=== PATIENT | female | born 1945 | race Caucasian/White ===

== ENCOUNTER 2020-06-25 17:42 | Inpatient (IN) | payer MEDICARE, MEDICAID ==
[~2020-06-25] VITALS: Ht 157.5 cm; Wt 59.0 kg
[2020-06-25] MEDS ORDERED: LORazepam Inj 2mg/ml 1ml ONE (18:09)
[2020-06-25] MEDS ORDERED: LORazepam Inj 2mg/ml 1ml IM ONE (18:15)
[2020-06-25 18:53] LABS: BASOPHILS % (AUTO) 1.9 % (0.0-2.0); EOSINOPHILS % (AUTO) 3.4 % (0.0-3.0); HEMATOCRIT 38.9 % (37.0-47.0); HEMOGLOBIN 13.2 G/DL (12.0-16.0); LYMPHOCYTES % (AUTO) 36.4 % (20.0-45.0); MEAN CORPUSCULAR VOLUME 94 FL (80-99); MONOCYTES % (AUTO) 8.4 % (1.0-10.0); NEUTROPHILS % (AUTO) 49.9 % (45.0-75.0); PLATELET COUNT 227 K/UL (150-450); RED BLOOD COUNT 4.16 M/UL (4.20-5.40); RED CELL DISTRIBUTION WIDTH 12.1 % (11.6-14.8); WHITE BLOOD COUNT 11.7 K/UL (4.8-10.8)
[2020-06-25] MEDS ORDERED: Haloperidol 5mg/ml Inj IM ONE (19:00)
[2020-06-25 19:02] LABS: ANION GAP 5 mmol/L (5-15); BLOOD UREA NITROGEN 14 mg/dL (7-18); CALCIUM 9.4 MG/DL (8.5-10.1); CARBON DIOXIDE 28 MMOL/L (21-32); CHLORIDE 103 MMOL/L (98-107); POTASSIUM 4.4 MMOL/L (3.5-5.1); SODIUM 136 MMOL/L (136-145)
[2020-06-25 19:08] LABS: ALANINE AMINOTRANSFERASE 15 U/L (12-78); ALBUMIN 3.8 G/DL (3.4-5.0); ALBUMIN/GLOBULIN RATIO 1.2 (1.0-2.7); ALKALINE PHOSPHATASE 62 U/L (46-116); ASPARTATE AMINO TRANSFERASE 10 U/L (15-37); BILIRUBIN,TOTAL 0.2 MG/DL (0.2-1.0)
[2020-06-25 19:12] VITALS: BP 139/98
--- NOTE | 2020-06-25 19:44 | Emergency Room Report ---
History of Present Illness General Chief Complaint: Behavioral Complaint Source: EMS (Ana Laura Peres) Present Illness HPI 74-year-old female with no known past medical history brought in by paramedics and put on a 5150 hold by PD due to walking toward the train [place] the track. Patient is hard of hearing. Unknown underlying psychiatric disorder. At this time patient is a poor historian and will be reevaluated. (Ana Laura Peres) Allergies: Coded Allergies: No Known Allergies (Unverified , 06/25/20) COVID-19 Screening COVID-19 risk:Contact w/high r: No Has patient experienced interiano: No COVID-19 Testing performed RADIO FREQUENCY DESIGN ENGINEER: No (Ana Laura Peres) Patient History Past Medical History: see triage record Past Surgical History: unable to obtain Family History: unable to obtain Reviewed Nursing Documentation: PMH: Agreed; PSxH: Agreed (Ana Laura Peres) Nursing Documentation-PMH Past Medical History: No Stated History (Ana Laura Peres) Review of Systems All Other Systems: negative except mentioned in HPI (Ana Laura Peres) Physical Exam Vital Signs Date Time Temp Pulse Resp B/P (MAP) Pulse Ox O2 Delivery O2 Flow Rate FiO2 06/25/20 17:32 97.7 88 16 139/98 (112) 96 Room Air Sp02 EP Interpretation: reviewed, normal General Appearance: alert/responsive Head: atraumatic Eyes: PERRL, lids + conjunctiva normal ENT: hearing intact, no angioedema Neck: supple/symm/no masses, no meningismus Respiratory: effort normal, no wheezing, chest symmetrical Cardiovascular: regular rate, rhythm, no edema Cardiovascular #2: 2+ carotid (R), 2+ carotid (L), 2+ dorsalis pedis (R), 2+ dorsalis pedis (L) Gastrointestinal: non-tender, no mass, non-distended, no rebound/guarding, normal bowel sounds Musculoskeletal: gait & station normal, normal ROM, strength & tone normal, non-tender Neurologic: oriented x3, sensory intact, normal speech Psychiatric: normal inspection, judgment & insight normal, memory normal Skin: no rash, well hydrated Lymphatic: normal inspection (Ana Laura Peres) Medical Decision Making PA Attestation All my diagnosis and treatment plans were reviewed ad discussed with my supervising physician Dr. Mcgee (Ana Laura Peres) Diagnostic Impression: Primary Impression: Self-destructive behavior Additional Impression: Gravely disabled ER Course 74-year-old female with no known past medical history brought in by paramedics and put on a 5150 [address] due to walking [place] the [place] the track. Patient is hard of hearing. Unknown underlying psychiatric disorder. At this time patient is a poor historian and will be reevaluated. Ddx considered but are not limited to: generalized anxiety disorder, panic attack, depression with psychotic feature, bipolar disorder, drug overdose Vital signs: are WNL, pt. is afebrile H&PE are most consistent with: Self-destructive behavior ORDERS: Psychiatric order set ED INTERVENTIONS: Mitzi Jones Patient is medically cleared I signed out the patient to Dr. Mcgee at 9PM (Ana Laura Peres) ER Course Patient was signed out to me. She was placed on a 5150 by police because she would not respond to the command to leave the train track. It turned out that patient is very hard of hearing and probably has underlying dementia and psychiatric problem. She did cooperative here. Denies suicidal thoughts or homicidal thought. She is 74 and homeless. Medical opinion, she should be medically placed in a SNF rather than psychiatric facility. Finally I was able to get her Social Security number from her and able to get her insurance permission. I discussed the case with Dr. Hernandez who accepted her to [facility]. There is no beds at outside facility. Patient approved for admission here. I contacted Dr. Weir for admission for Dr. Sethi. (Marin Villagran MD) Last Vital Signs Date Time Temp Pulse Resp B/P (MAP) Pulse Ox O2 Delivery O2 Flow Rate FiO2 06/25/20 19:12 97.7 80 16 139/98 96 Room Air (Ana Laura Peres) Status: improved (Marin Villagran MD) Disposition: ADMITTED INPATIENT Condition: Stable Scripts No Active Prescriptions or Reported Meds Referrals: NOT CHOSEN IPA/,REFERRING (PCP) Ana Laura Peres Jun 25, 2020 19:44 Marin Villagran MD Jun 26, 2020 04:10
[2020-06-25 22:49] LABS: APPEARANCE,URINE CLEAR; BILIRUBIN, URINE NEGATIVE (NEGATIVE); COLOR,URINE PALE YELLOW; GLUCOSE, URINE (UA) NEGATIVE (NEGATIVE); KETONES,URINE NEGATIVE (NEGATIVE); LEUKOCYTE ESTERASE ,URINE NEGATIVE (NEGATIVE); NITRITE,URINE NEGATIVE (NEGATIVE); PH,URINE 7 (4.5-8.0); PROTEIN,URINE NEGATIVE (NEGATIVE); UROBILINOGEN,URINE NORMAL MG/DL (0.0-1.0)
[2020-06-26 08:30] VITALS: BP 128/96
[2020-06-26] MEDS ORDERED: LORazepam 1mg tab ORAL SCH (11:00)
[2020-06-26 12:00] VITALS: BP 156/97
--- NOTE | 2020-06-26 17:37 | History and Physical ---
History of Present Illness General Date patient seen: Jun 26, 2020 Reason for Hospitalization: Behavioral Complaint Present Illness HPI 74 yr old undomeciled Female with unclear PMHx was brought by paramedics and put on a 51:50 [address] PD due to walking [place] the [place] the track. Admission for concern for possible danger to self. Patient is having difficulty understanding some questions possibly due to being hard of hearing. Unknown psychiatric history. She is unable to recount events leading up to admission from the ER. Able to state that she lives in a boarding care. She is asking to return to the facility she was staying at. Allergies: Coded Allergies: No Known Allergies (Unverified , 06/25/20) COVID-19 Screening Contact w/high risk pt: No Experienced COVID-19 symptoms?: No Medication History No Active Prescriptions or Reported Meds Patient History Healthcare decision maker Resuscitation status Advanced Directive on File Review of Systems Constitutional: Denies: no symptoms, see HPI, chills, sweats, fever, malaise, weakness, other Eye: Denies: no symptoms, see HPI, eye pain, blurred vision, tearing, double vision, nose pain, nose congestion, acuity changes, discharge, other ENT: Denies: no symptoms, see HPI, ear pain, ear discharge, nose pain, nose congestion, throat pain, throat swelling, mouth pain, hearing loss, nasal discharge, other Cardiovascular: Denies: no symptoms, see HPI, chest pain, edema, palpitations, syncope, PND, other Gastrointestinal: Denies: no symptoms, see HPI, abdominal pain, constipation, diarrhea, nausea, vomiting, melena, hematemesis, other Genitourinary: Denies: no symptoms, see HPI, discharge, dysuria, frequency, hematuria, pain, retention, incontinence, urgency, vag bleed/dc, other Musculoskeletal: Denies: no symptoms, see HPI, back pain, gout, joint pain, joint swelling, muscle pain, muscle stiffness, other Skin: Denies: no symptoms, see HPI, rash, change in color, change in christiane r/nails, dryness, lesions, other Psychiatric: Denies: no symptoms, see HPI, prior hx, anxiety, depressed f eelings, emotional problems, SI, HI, hallucinations, other Endocrine: Denies: no symptoms, see HPI, excessive sweating, flushing, intolerance to temperature, increased thirst, increased urine, unexplained weight loss, other Hematologic/Lymphatic: Denies: no symptoms, see HPI, anemia, blood clots, easy bleeding, easy bruising, swollen glands, diathesis, other Physical Exam General Appearance: no apparent distress, other HEENT: normocephalic, atraumatic Neck: supple Respiratory/Chest: lungs clear Cardiovascular/Chest: normal rate Abdomen: non tender, soft Extremities: normal range of motion Last 24 Hour Vital Signs Date Time Temp Pulse Resp B/P (MAP) Pulse Ox O2 Delivery O2 Flow Rate FiO2 06/26/20 16:00 98.7 94 19 100 06/26/20 12:00 98.1 91 19 156/97 (116) 98 06/26/20 12:00 19 156/97 98 06/26/20 11:16 86 20 126/94 100 06/26/20 09:00 Room Air 06/26/20 09:00 98.1 86 20 126/94 100 Room Air 06/26/20 08:30 98.1 85 19 128/96 99 Room Air 06/25/20 19:12 97.7 80 16 139/98 96 Room Air 06/25/20 19:12 88 16 Room Air 06/25/20 19:00 88 16 139/98 96 06/25/20 18:15 88 16 139/98 96 06/25/20 17:32 97.7 88 16 139/98 (112) 96 Room Air Intake and Output 06/25/20 06/26/20 19:00 07:00 # Voids 1 Laboratory Tests Test 06/25/20 18:00 06/25/20 18:20 Urine Color Pale yellow Urine Appearance Clear Urine pH 7 (4.5-8.0) Urine Specific [place] 1.005 (1.005-1.035) Urine Protein Negative (NEGATIVE) Urine Glucose (UA) Negative (NEGATIVE) Urine Ketones Negative (NEGATIVE) Urine Blood 1+ (NEGATIVE) H Urine Nitrite Negative (NEGATIVE) Urine Bilirubin Negative (NEGATIVE) Urine Urobilinogen Normal MG/DL (0.0-1.0) Urine Leukocyte Esterase Negative (NEGATIVE) Urine RBC 0-2 /HPF (0 - 2) Urine WBC 0 /HPF (0 - 2) Urine Squamous Epithelial Cells Few /LPF (NONE/OCC) Urine Bacteria Occasional /HPF (NONE) Urine Opiates Screen Negative (NEGATIVE) Urine Barbiturates Screen Negative (NEGATIVE) Phencyclidine (PCP) Screen Negative (NEGATIVE) Urine Amphetamines Screen Negative (NEGATIVE) Urine Benzodiazepines Screen Negative (NEGATIVE) Urine Cocaine Screen Negative (NEGATIVE) Urine Marijuana (THC) Screen Negative (NEGATIVE) White Blood Count 11.7 K/UL (4.8-10.8) H Red Blood Count 4.16 M/UL (4.20-5.40) L Hemoglobin 13.2 G/DL (12.0-16.0) Hematocrit 38.9 % (37.0-47.0) Mean Corpuscular Volume 94 FL (80-99) Mean Corpuscular Hemoglobin 31.9 PG (27.0-31.0) H Mean Corpuscular Hemoglobin Concent 34.1 G/DL (32.0-36.0) Red Cell Distribution Width 12.1 % (11.6-14.8) Platelet Count 227 K/UL (150-450) Mean Platelet Volume 7.0 FL (6.5-10.1) Neutrophils (%) (Auto) 49.9 % (45.0-75.0) Lymphocytes (%) (Auto) 36.4 % (20.0-45.0) Monocytes (%) (Auto) 8.4 % (1.0-10.0) Eosinophils (%) (Auto) 3.4 % (0.0-3.0) H Basophils (%) (Auto) 1.9 % (0.0-2.0) Sodium Level 136 MMOL/L (136-145) Potassium Level 4.4 MMOL/L (3.5-5.1) Chloride Level 103 MMOL/L (98-107) Carbon Dioxide Level 28 MMOL/L (21-32) Anion Gap 5 mmol/L (5-15) Blood Urea Nitrogen 14 mg/dL (7-18) Creatinine 1.0 MG/DL (0.55-1.30) Estimat Glomerular Filtration Rate 53.9 mL/min (>60) Glucose Level 88 MG/DL (74-106) Calcium Level 9.4 MG/DL (8.5-10.1) Total Bilirubin 0.2 MG/DL (0.2-1.0) Aspartate Amino Transf (AST/SGOT) 10 U/L (15-37) L Alanine Aminotransferase (ALT/SGPT) 15 U/L (12-78) Alkaline Phosphatase 62 U/L (46-116) Total Protein 7.1 G/DL (6.4-8.2) Albumin 3.8 G/DL (3.4-5.0) Globulin 3.3 g/dL Albumin/Globulin Ratio 1.2 (1.0-2.7) Salicylates Level 3.5 ug/mL (2.8-20) Acetaminophen Level < 2 MCG/ML (10-30) L Serum Alcohol < 3 mg/dL Microbiology Date/Time Source Procedure Growth Status 06/26/20 03:00 Nasopharynx SARS-CoV-2 RdRp Gene Assay - Final Complete Height (Feet): 5 Height (Inches): 2.00 Weight (Pounds): 130 Assessment/Plan Status: stable Diagnosis [place] I: #Unclear Psychiatric Diagnosis #51:50 placed by police with concern for grave disability - Admit to Obs - 1:1 sitter to re-orient patient - Psychiatric Consult - Lytes wnl - UA wnl no concern for infection - Utox negative - nutritional services cook consult to assist with placement - Obtaining records from [facility] Diet Regular Full Code Total time spent is 75 minutes with 23 minutes spent with care coordination and counseling. D/w Nurse. Time of notes does not reflect time of encounter Kayla Delgadillo M.D. Jun 26, 2020 17:37
--- NOTE | 2020-06-26 19:45 | Consultation ---
DATE OF CONSULTATION: 06/26/2020 CONSULTING PHYSICIAN: Tal Whipple MD HISTORY OF PRESENT ILLNESS: This is a 74-year-old female who was found walking in front of traffic and a train. She was placed on a 5150 and brought into the emergency room for grave disability. Upon evaluation, patient is confused. Patient is on medical floor. She is unable to provide any meaningful history. In addition, she is hard of hearing. She is not suicidal or homicidal. Patient lives in a board and care. The facility will take her back. She is not an imminent danger to self or others. PAST PSYCHIATRY HISTORY: Significant for dementia, psychotic disorder. PAST MEDICAL HISTORY: Nonsignificant. ALLERGIES: No known drug allergies. SUBSTANCE ABUSE HISTORY: No known history of illicit drug use or alcohol. MENTAL STATUS EXAMINATION: Patient is alert, disoriented. Mood is dysphoric. Affect is constricted, congruent with mood. Thought process is concrete. Thought content, no suicidal or homicidal ideation. Cognition is impaired. Insight and judgment impaired. ASSESSMENT: [place] I Dementia with behavior disturbance. Psychotic disorder. [place] II Deferred. [place] III None. [place] IV Low [place] V 20. PLAN: 1. Patient will be started on risperidone 2 mg at bedtime. 2. Patient is not an imminent danger to self or others. Therefore, we will discontinue the sitter. 3. Patient is cleared to be discharged. Tal Whipple M.D. DR: CAROLYNN JOB#: [id number] CC:
[2020-06-26 20:00] VITALS: BP 171/89
[2020-06-26] MEDS ORDERED: cloNIDine 0.2mg Tab ORAL SCH (23:00)
[2020-06-27] VITALS: BP 158/87
--- NOTE | 2020-06-30 21:17 | Discharge Summary ---
Discharge Summary Hospital Course Date of Admission Jun 26, 2020 at 04:17 Date of Discharge Jun 27, 2020 at 00:55 Admitting Diagnosis GRAVLEY DISABLED HPI Michelle Nails is a 74 year old female who was admitted on Jun 26, 2020 at 04:17 for [place] Disabled Hospital Course Patient was admitted for concern for grave disability to self after being found walking near the train tracks and placed on a 51:50 hold by law enforcement. She was monitored closely with a sitter and subsequently evaluated by psychiatry. Patient was deemed not an imminent danger to self or other. She is not homicidal or suicidal. She was discharged to her board care facility. Discharge Discharge Vital Signs Last Vital Signs Date Time Temp Pulse Resp B/P (MAP) Pulse Ox O2 Delivery O2 Flow Rate FiO2 06/27/20 00:00 98.7 85 20 158/87 (110) 95 06/26/20 21:00 Room Air Discharge Disposition [facility] Kayla Delgadillo M.D. Jun 30, 2020 21:17
== END 2020-06-27 00:55 | disposition home or self-care (01) | DRG 757 ==
LOC: EDBD 17:42 → EMR 19:26 → 4E 06-26 04:17 → EDBEDREQ 06-26 08:16
DX: F03.91 Unspecified dementia, unspecified severity, with behavioral disturbance (principal); F29 Unspecified psychosis not due to a substance or known physiological condition; H91.90 Unspecified hearing loss, unspecified ear
CPT/HCPCS: 36415; 80053; 80307; 81003; 85025; 96372; 99285; G0480; U0002